=== PATIENT | female | born 2000 | race Caucasian/White ===

== ENCOUNTER 2023-09-27 20:48 | Emergency (ER) | payer SELFPAY ==
[2023-09-27 21:12] VITALS: BP 143/98; PULSE 91; RESP 18; TEMP 98.8; BMI 22.1
[2023-09-27] MEDS ORDERED: ACETAMINOPHEN 325 MG TABLET (FP) PO ONE (21:28)
[2023-09-27] MEDS ORDERED: ACETAMINOPHEN 325 MG TABLET (FP) ONE (21:29)
== END 2023-09-27 23:11 | disposition home or self-care (01) ==
LOC: JER 20:48
PROC: 2W3JX1Z Immobilization of Right Finger using Splint (ICD-10-PCS; principal; 2023-09-27)
PROC: 0HQQXZZ Repair Finger Nail, External Approach (ICD-10-PCS; 2023-09-27)
DX: S61.309A Unspecified open wound of unspecified finger with damage to nail, initial encounter (principal); M79.641 Pain in right hand; M79.642 Pain in left hand; M25.562 Pain in left knee; Y04.8XXA Assault by other bodily force, initial encounter
CPT/HCPCS: 73130-TC-LT-FY; 73130-TC-RT-FY; 73562-TC-LT-FY; 99284-25

== ENCOUNTER 2024-03-18 12:36 | Emergency (ER) | payer OTHER ==
[2024-03-18 12:47] VITALS: BP 111/62; PULSE 80; RESP 18; TEMP 98; BMI 21.2
== END 2024-03-18 15:23 | disposition home or self-care (01) ==
LOC: JERFT 12:36
DX: Z48.02 Encounter for removal of sutures (principal)
CPT/HCPCS: 99281-25